=== PATIENT | male | born 1960 | race Caucasian/White ===

== ENCOUNTER → 2017-08-05 | Outpatient (CLI) | payer OTHER ==
[~2017-08-05] MED LIST: ALEVE220 MG PO; BACTRIM DS TAB1 EACH PO; GLUCOPHAGE1000 MG PO; LANTUS SC; LIPITOR20 MG PO; PRINIVIL; VICODIN 5-5001 EACH PO
== END ==
LOC: M.ULTRA 12:44
DX: E11.9 Type 2 diabetes mellitus without complications (principal); M79.662 Pain in left lower leg; M79.661 Pain in right lower leg

== ENCOUNTER → 2018-03-16 | Outpatient (CLI) | payer OTHER | LOC: M.WC 04:18 | DX: L03.032 Cellulitis of left toe (principal); E11.40 Type 2 diabetes mellitus with diabetic neuropathy, unspecified; E78.5 Hyperlipidemia, unspecified; E66.9 Obesity, unspecified; J45.909 Unspecified asthma, uncomplicated; Z86.73 Personal history of transient ischemic attack (TIA), and cerebral infarction without residual deficits; Z87.891 Personal history of nicotine dependence; Z68.39 Body mass index [BMI] 39.0-39.9, adult; Z90.49 Acquired absence of other specified parts of digestive tract; Z79.4 Long term (current) use of insulin; Z79.82 Long term (current) use of aspirin ==